=== PATIENT | female | born 1980 | race Caucasian/White ===

== ENCOUNTER 2018-08-09 21:55 | Emergency (ER) | payer OTHER, SELFPAY ==
[2018-08-09 21:56] VITALS: BP 129/87; PULSE 74; RESP 14; TEMP 37.1; O2SAT 100; BMI 29.4
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
[2018-08-09] MEDS: Ibuprofen 200 MG Tablet 400 MG PO (22:53)
[2018-08-09] MEDS: BACITRACIN 15 GM Tube 1 APPLIC TOPICAL (22:54)
== END 2018-08-09 22:58 | disposition home or self-care (01) ==
PROVIDERS: Emergency Provider Emergency Medicine
DX: T20.14XA Burn of first degree of nose (septum), initial encounter (principal); T26.01XA Burn of right eyelid and periocular area, initial encounter; X10.2XXA Contact with fats and cooking oils, initial encounter; Y93.89 Activity, other specified; Y92.9 Unspecified place or not applicable; Y99.0 Civilian activity done for income or pay
CPT/HCPCS: 99283